=== PATIENT | female | born 2000 | race American Indian/Alaskan Native ===

== ENCOUNTER 2020-05-15 09:49 | Emergency (ER) | payer SELFPAY ==
[2020-05-15 09:54] VITALS: BP 127/77
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
== END 2020-05-15 11:12 | disposition home or self-care (01) ==
LOC: ED 09:49
DX: M25.512 Pain in left shoulder (principal); F17.200 Nicotine dependence, unspecified, uncomplicated; V49.49XA Driver injured in collision with other motor vehicles in traffic accident, initial encounter; Y92.410 Unspecified street and highway as the place of occurrence of the external cause; Y93.89 Activity, other specified; Y99.8 Other external cause status
CPT/HCPCS: 99281

== ENCOUNTER 2021-02-06 11:51 | Emergency (ER) | payer SELFPAY ==
[2021-02-06] MEDS ORDERED: ONDANSETRON 4 MG/2 ML INJ IV ONE (12:37)
[2021-02-06] MEDS ORDERED: FAMOTIDINE 20 MG/2 ML INJ IV ONE (12:37)
[2021-02-06] MEDS ORDERED: MORPHINE 4 MG/1 ML INJ IV ONE (12:37)
[2021-02-06] MEDS ORDERED: SODIUM CHLORIDE 0.9% 1000 ML 1,000 ML IV ONE (12:37)
[2021-02-06] MEDS ORDERED: ACETAMINOPHEN 500 MG TAB PO ONE (12:41)
[2021-02-06] MEDS ORDERED: MORPHINE 2 MG/1 ML INJ IV ONE ×3 (12:52→13:23)
[2021-02-06 13:10] LABS: Mean Corpuscular HGB Conc 31 % (30-34); Mean Corpuscular Volume 78 fl (79-97); Platelet Count 321 K/mm3 (140-440); Red Blood Count 5.15 M/mm3 (3.65-5.03); Red Cell Distribution Width 15.8 % (13.2-15.2)
[2021-02-06 13:20] LABS: Hematocrit 40.3 % (30.3-42.9); Hemoglobin 12.3 gm/dl (10.1-14.3)
[2021-02-06 13:34] LABS: Alanine Aminotransferase 8 units/L (7-56); Albumin 4.8 g/dL (3.9-5); Blood Urea Nitrogen 18 mg/dL (7-17); Calcium 9.5 mg/dL (8.4-10.2); Hemolysis Index 5
[2021-02-06 13:35] LABS: BUN/Creatinine Ratio 26
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
--- NOTE | 2021-02-06 14:22 | XRay Report ---
CHEST 2 VIEWS INDICATION: sepsis w/ n/v. COMPARISON: none FINDINGS: Support devices: None. Heart: Within normal limits. Lungs/pleura: No acute air space or interstitial disease. No pneumothorax. Additional findings: Mild thoracolumbar scoliosis IMPRESSION: No acute findings. Signer Name: Gabriel Moreno Jr, MD Signed: 02/06/2021 2:17 PM Workstation Name: [id number]
--- NOTE | 2021-02-06 14:49 | Cat Scan Report ---
CT ABDOMEN AND PELVIS WITH CONTRAST HISTORY: abd pain with n/v-PO AND IV CONTRAST OMNI 300 100 ML. COMPARISON: None. TECHNIQUE: CT images of the abdomen and pelvis were obtained following administration of intravenous contrast. All CT scans at this location are performed using CT dose reduction for ALARA by means of automated exposure control. CONTRAST: 100 ml of intravenous contrast administered. FINDINGS: Lungs/bones: Lung bases are clear. No acute osseous abnormality identified. Abdomen/pelvis: The liver, gallbladder, spleen, pancreas, adrenals, kidneys, and proximal GI tract a ppear unremarkable. There is a small amount of endometrial fluid--correlate with stage in menstrual cycle. No acute abnor mality involving the reproductive system. No significant pelvic free fluid. No acute colonic abnormal ity identified. The appendix is normal. IMPRESSION: 1. No acute abnormality identified. Signer Name: Tyler Barrera MD Signed: 02/06/2021 2:44 PM Workstation Name: [id number]
[2021-02-06 14:53] LABS: Anisocytosis Few; Hypochromasia 1+; Platelet Estimate Consistent w Auto; Total Cells Counted 100
[2021-02-06 15:47] LABS: Bilirubin,Urine NEG (Negative); Blood,Urine NEG (Negative); Color,Urine Yellow (Yellow); Mucus,Urine 3+ /HPF; Urobilinogen,Urine < 2.0 mg/dL (<2.0)
[2021-02-06 17:03] VITALS: BP 120/78
--- NOTE | 2021-02-07 10:33 | Electrocardiograph Report ---
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
== END 2021-02-06 17:02 | disposition home or self-care (01) ==
LOC: ED 11:51
DX: R50.9 Fever, unspecified (principal); R11.2 Nausea with vomiting, unspecified; F17.290 Nicotine dependence, other tobacco product, uncomplicated; Z79.899 Other long term (current) drug therapy
CPT/HCPCS: 36415; 71046; 74177; 80053; 81001; 82140; 83690; 84703; 85007; 85025; 87040; 93005; 96361; 96374; 96375; 99284; J2270; J2405; J3490; J7030; Q9967; Q0162